=== PATIENT | female | born 1945 | race Caucasian/White ===

== ENCOUNTER 2021-02-21 14:11 | Outpatient (RCR) | payer MEDICARE, MEDICAID, SELFPAY ==
--- NOTE | 2021-02-22 12:37 | HP.OTEVAL_ITS ---
Patient's Visit Information JASBIR QUIÑONES is a 76 year old F, referred to Occupational Therapy by Dr. Urmila Coleman MD, with a diagnosis of LE lymphedema. Date of Evaluation: 02/21/21 Occupational Therapist: Jayde De La Torre, TAYLOR/Khanh, CHT - Subjective This 76 year old female was seen for OT eval with dx of lymphedema. Pt arrives in from [place]. Pt arrives states she has had swelling in her LE for over 2 years. pt would like to know what she can do to assist in decreasing her swelling. - Objective pt arrives with kary hose on (knee high) legs bright read and warm to touch- questioning if pt has initial stage of cellulitis. pt has swelling above knees and this is firm to touch-. when asked of she was willing to use wraps on her legs pt was not receptive. ( this could pose a fall risk if wraps slide down). pts skin integrity is poor. - Lymphedema (Circumferential Measure) Mid-foot: right 23cm left 23 Ankle: right 26cm left 26 Lower calf: right 29cm left 26 Largest calf: right 45 left 45 Below knee: right 43 left 43 Above knee: right 56 left 56 Lower Exremity Comments: pt demo with fluid retention above knee bilaterally- - Goals Demonstrate a 20% reduction in edema by d/c: Yes Demonstrate adequate knowledge therapeutic exercises by d/c: Yes Voice need to replace compression garment every 4-6mo by dc: Yes - Rehabilitation General Assessment: pt demo with LE edema. This therapist spoke with Lex[facility] at [facility]. and found out pt does sit for long periods of time at [facility] with feet down- the do encourage her to put her legs up in bed as much as possible. Due to pts limited safe mobility this therapist is recommending Physical Therapy to increase pts safe mobility. Therapist also rec.d use of compression socks 20- 30mmHg vs kary hose as this will increase fluid circulation. (thigh high would be better if pt would be receptive but at least knee high) therapist did explain to staff to have someone look at pts legs as they are bright red and warm to touch- (may be early stage of cellulitis) they expressed that they would. At this time skilled facility can call with questions or concerns as needed. Rehabilitation Potential: Questionable - Anticipated Interventions Education re Diagnosis, Education re Life-long lymphedema Management, Education re Skin Care and Precautions, Education re Correct Donning Tech,Care&Wearing Sched Comp Garments, Caregiver Training, Home Program - Visit Plan TEXT: Thank you for the opportunity to evaluate your patient. For Medicare and Medicare HMO plans, please review the plan of care and approve it. It will need to be FAXED BACK to us at [phone] for Medicare purposes. Please let me know if there are questions or concerns regarding this plan of care. Physician Signature: Date:
--- NOTE | 2021-04-26 13:16 | HP.OT.NRP ---
JABSIR QUIÑONES was seen in my office for initial evaluation on 02/21/21. The following Plan of Care was established for this patient: Anticipated Interventions: Education re Diagnosis, Education re Life-long lymphedema Management, Education re Skin Care and Precautions, Education re Correct Donning Tech,Care&Wearing Sched Comp Garments, Caregiver Training, Home Program This patient was last seen in our office 02/21/21. Pertinent comments regarding their Occupational therapy will appear below: Pt was seen for initial eval only at this time due to time lapse in services pt d/c At this point I will be discontinuing this patient from occupational therapy. I would be happy to see this patient again in the future if found appropriate by the physician. Thank you! Jayde De La Torre, OTR/L, CHT
== END 2021-02-21 19:00 | disposition home or self-care (01) ==
LOC: OT 14:11
PROVIDERS: Referring Provider Student in an Organized Health Care Education/Training Program; Visit Provider Student in an Organized Health Care Education/Training Program
DX: I89.0 Lymphedema, not elsewhere classified (principal)
CPT/HCPCS: 97166